=== PATIENT | female | born 1960 | race Two or more races ===

== ENCOUNTER 2016-12-06 01:17 | Emergency (ER) | payer SELFPAY ==
--- NOTE | ~2016-12-06 | ER ---
PATIENT'S NAME: MANI GILMAN [facility] AGE: 56 Y [address] ROOM: [place] [address] LOCATION: [facility] ADMIT DATE: 12/06/2016 ER/Outpatient Report DISCHARGE DATE: 12/06/2016 FAMILY PHYSICIAN: PHYSICIAN, NO ATTENDING PHYSICIAN: Barber Gamble Admission date and time are documented in the medical record. I saw the patient at 0130 hours. CHIEF COMPLAINT: Abdominal pain, nausea, and vomiting. HISTORY OF PRESENT ILLNESS: This patient is a 56-year-old female who has been ill over the past 12 to 13 hours since noon yesterday. She has had a lot of intermittent nausea. She has vomited 5 times. No diarrhea. No urinary frequency, urgency, or dysuria. No incontinence. She has a lot of gas. She has diffuse abdominal pain. No fever, chills, or sweats. No recent coughs, colds, or flus. No headache, eyes, ears, nose, throat, neck, or spine pain. No fall or trauma. No lightheadedness, dizziness, syncope, or near syncope. No chest pain or shortness of breath. No joint or muscle swelling, redness, or pain. No skin eruptions or rash. No history of neuro changes. Does have non-insulin- dependent diabetes mellitus. No psych issues. HOME MEDICATIONS: See attached medication list. ALLERGIES: NONE. SOCIAL HISTORY: Nonsmoking for 8 years, occasional intake of alcohol. SIGNIFICANT PAST MEDICAL HISTORY: Vzc-uzhvxzl-qohdrsnrl diabetes mellitus, type 2, nephrolithiasis, and remote tobacco abuse. OPERATIONS: . REVIEW OF SYSTEMS: All systems reviewed by me are negative with the exception of those discussed in the history of present illness. PHYSICAL EXAMINATION: PATIENT'S NAME: MANI GILMAN [facility] AGE: 56 Y [address] ROOM: [place] [address] LOCATION: [facility] ADMIT DATE: 12/06/2016 ER/Outpatient Report DISCHARGE DATE: 12/06/2016 FAMILY PHYSICIAN: PHYSICIAN, NO ATTENDING PHYSICIAN: Barber Gamble VITAL SIGNS: Temperature 96.9, tympanic, pulse 95, respirations 16, blood pressure 111/62, and O2 sat on room air is 98%. HEAD: Normocephalic. EYES, EARS, NOSE, THROAT: Clear. Mucous membranes moist. NECK: Negative. SPINE: Negative. LUNGS: Clear. HEART: Regular. Pulses are palpable. No chest wall or ribcage pain to palpation. ABDOMEN: Diffuse tenderness especially on the left-side of her abdomen. Bowel tones present. No organomegaly or abnormal mass palpable. No CVA tenderness. EXTREMITIES: Intact. NEUROVASCULAR: Intact. SKIN: Clear. No skin eruptions or rash. LABORATORY DATA: Three-way abdominal x-rays show no perforation, obstruction, or acute lung infiltrate. We will review x-ray with the radiologist. Urine showed 0 to 2 whites, negative reds, rare epithelial cells, many bacteria per high-powered field, positive nitrites. Culture pending. Lactate was 0.9. Procalcitonin was less than 0.05. White count 7100, 79 segs, 16 lymphs, 3 monos, 1 eo, hemoglobin was 13.2 with hematocrit 37.9, and platelet count 349,000. CMS was normal except for a low anion gap of 8.8, elevated glucose 118, and elevated AST at 75. Amylase and lipase were normal. CRP was 1.48. I did do a CT scan of the abdomen and pelvis with IV contrast that showed some minor intrahepatic bile duct dilatation; otherwise, everything else was negative. CT scan was read by Radiology, see dictated transcribed report. EMERGENCY DEPARTMENT COURSE: I did start the patient on IV normal saline, fluids, and gave her 1 L in the emergency room. I gave her Zofran 4 mg IV in the emergency room for nausea, vomiting, gave her a total of 100 mcg of fentanyl IV for pain. The patient is pain-free on dismissal. IMPRESSION: 1. Diffuse abdominal pain, etiology uncertain. There is a possibility this could be urinary tract infection. Urine culture is pending. 2. Vjg-mjgawot-nxlduigrv diabetes mellitus type 2. PLAN: The patient is dismissed home. Observation. Activity as tolerated. Diet and fluids as tolerated. Continue present home medications and care. Levaquin 500 mg once a day #3. Awaiting urine culture. Zion 5/325 as needed for pain. Zofran 4 mg as needed for nausea and vomiting. Follow up with personal PATIENT'S NAME: ELVIS [facility] AGE: 56 Y [address] ROOM: [place], [place] [address] LOCATION: [facility] ADMIT DATE: 12/06/2016 ER/Outpatient Report DISCHARGE DATE: 12/06/2016 FAMILY PHYSICIAN: PHYSICIAN, ELIOT ATTENDING PHYSICIAN: Barber Gamble physician in 4-5 days for followup exam or sooner if needed. Discussion ensued with the patient and her daughter in regard to my findings and recommendations, they understand. MD DERRICK MIRELES/modl /[id number] d: 12/06/16 0516 t: 12/06/16 1813, OUTPATIENT REPORT
[2016-12-06 02:07] LABS: BASOPHIL % 0.3 %; EOSINOPHIL # 0.1 K/uL (0.0-0.5); EOSINOPHIL % 1.3 %; HEMATOCRIT 37.9 % (33.0-46.0); HEMOGLOBIN 13.2 g/dL (10.0-15.0); IMMATURE GRANULOCYTE % 0.3 %; LYMPHOCYTE # 1.2 K/uL (0.8-4.0); LYMPHOCYTE % 16.3 %; MCHC 34.8 gm/dL (32.0-36.5); MCV 91.8 fl (83.0-98.0); MONOCYTE # 0.2 K/uL (0.0-1.0); MONOCYTE % 3.1 %; MPV 9.1 fl (9.4-12.4); NEUTROPHIL # (ANC) 5.6 K/uL (1.8-7.8); NEUTROPHIL % 78.7 %; NRBC % 0 /100WBC (0-0.00); PLATELET COUNT 349 K/uL (150-450); RBC 4.13 M/uL (3.50-5.50); RDW-CV 13.3 % (11.9-14.6); WBC 7.1 K/uL (4.0-11.0)
[2016-12-06 02:08] LABS: BILIRUBIN URINE NEGATIVE (NEGATIVE); BLOOD URINE NEGATIVE /UL (NEGATIVE); COLOR URINE YELLOW (YELLOW); GLUCOSE URINE NEGATIVE (NEGATIVE); KETONE URINE NEGATIVE (NEGATIVE); LEUKOCYTES URINE NEGATIVE /UL (NEGATIVE); NITRITE URINE POSITIVE (NEGATIVE); PROTEIN URINE NEGATIVE (NEGATIVE); TURBIDITY URINE CLEAR (CLEAR); UROBILINOGEN URINE NORMAL (NORMAL)
[2016-12-06 02:21] LABS: BACTERIA URINE MANY (NEGATIVE); EPITHELIAL URINE RARE #/HPF (NEGATIVE); RBC URINE NEGATIVE #/HPF (NEGATIVE); WBC URINE 0-2 #/HPF (NEGATIVE)
[2016-12-06 02:31] LABS: ALBUMIN 3.8 gm/dL (3.5-5.0); ALK PHOS 83 IU/L (33-138); ALT 43 IU/L (12-78); ANION GAP 8.8 (10.0-19.0); AST 75 IU/L (10-40); BLOOD UREA NITROGEN 16 mg/dL (6-24); CALCIUM 8.9 mg/dL (8.5-10.5); CHLORIDE 101 mMol/L (96-110); CO2 30 mMol/L (22-32); CREATININE 0.6 mg/dL (0.5-1.1); ESTIMATED GFR (MDRD EQUATION) > 60; POTASSIUM 3.8 mMol/L (3.7-5.1); SODIUM 136 mMol/L (135-145); TOTAL BILIRUBIN 0.6 mg/dL (0.0-1.5); TOTAL PROTEIN 7.8 g/dL (6.0-8.4)
== END 2016-12-06 04:24 | disposition disaster alternative care site (69) ==
LOC: GMED 01:17
PROVIDERS: Emergency Medicine
DX: R10.9 Unspecified abdominal pain (principal); E11.9 Type 2 diabetes mellitus without complications; Z87.442 Personal history of urinary calculi; Z79.899 Other long term (current) drug therapy
CPT/HCPCS: J2405; J3010; J7030; Q9967